=== PATIENT | female | born 1980 | race Caucasian/White ===

== ENCOUNTER 2017-12-12 14:56 | Observation (INO) ==
--- NOTE | 2017-12-12 16:34 | General Surg History&Physical ---
<Maritza Pereira - Last Filed: 12/12/17 18:16> Date of Encounter: 12/12/17 Time of Encounter: 16:32 Assessment and Plan (1) Acute appendicitis Current Visit: No Status: Resolved 37 y F with Hx of GERD presenting with RLQ abdominal pain likely 2/2 to acute appendicitis, with CT imaging appendicitis with appendicolith, presenting with Right lower quadrant tenderness , Nausea, leukocytosis Plan for appendectomy tomorrow Clear Liquid diet until midnight. NPO Diet Type and Screen IV fluids IV Abx CBC, BMP in AM Qualifiers: Acute appendicitis type: with localized peritonitis Qualified Code(s): K35.3 - Acute appendicitis with localized peritonitis (2) Fibromyalgia Current Visit: Yes Status: Acute Resume PO meds with diet. (3) DVT prophylaxis Current Visit: Yes Status: Acute SCDs History of Present Illness Chief complaint: Abdominal Pain HPI: Ms. Vidal is a 37 year old female with a past medical history of fibromyalgia, GERD, migraine presenting to ED for worsening abdominal pain RLQ pain x 4 days. Pain was and sharp and aggravated on sitting or walking.Abdominal Pain did not migrate. Associated symptoms: Nausea. Denies: Vomiting. Anorexia. Diarrhea. No relieving factors. 12/12 CT Imaging in ED impression including: dilated appendix measuring 1.0 cm with moderate periappendiceal inflammation consistent with acute uncomplicated appendicitis. A 7 mm hyperattenuating lesion within the lumen of the mid appendix likely represents an appendicolith. Medications: Sevella 50 mg PO BID -Fibromylagia Black Cohosh 540 mg QD - Hot flashes Allergies: Pt denies any known allergies to medications. Social: No alcohol. Non-smoker Surgical History: Hysterectomy. Denies any complication with past surgery. Past Med Surg Social Fam HX - Past Medical History Medical history: fibromyalgia, GERD, migraine Psychiatric history: no psych history - Social History Smoking Status: Former smoker Smokeless Tobacco Status: No Alcohol use: none Drug use: none Medications and Allergies Milnacipran HCl [Savella] 50 mg PO BID 08/05/16 [History] 3 Allergy/AdvReac Type Severity Reaction Status Date / Time No Known Allergies Allergy Verified 11/22/15 21:41 Review of Systems All systems PM: As documented above in the HPI. General Surgery Exam - General physical appearance no distress - Respiratory normal expansion, normal respiratory effort, clear to auscultation - Cardiovascular Cardiovascular exam: Present: RRR, no murmurs/rubs/gallops - Abdomen Abdomen general surgery: Present: bowel sounds present, soft, tender (RLQ pain on passive R hip extension ) Abdominal Tenderness: Present: RLQ - Psychiatric Psychiatric general surgery: Present: appropriate, oriented to person, oriented to place, oriented to time, speech is normal Results - Labs Refer to Labs of 12/12 13:32 - Imaging CT scan - abdomen: report reviewed CT scan - pelvis: image reviewed (CT OF THE ABDOMEN AND PELVIS WITHOUT CONTRAST 12/12/2017 2:05 pm TECHNIQUE: CT of the abdomen and pelvis was performed without the administration of intravenous contrast. Multiplanar reformatted images are provided for review. Dose modulation, iterative reconstruction, and/ or weight based adjustment of the mA/kV was utilized to reduce the radiation dose to as low as reasonably achievable. COMPARISON: 02/03/2017 HISTORY: ORDERING SYSTEM PROVIDED HISTORY: abd pain left flank pain FINDINGS: Lower Chest: There is bibasilar atelectasis. Organs: The unenhanced liver, spleen, pancreas, adrenal glands and kidneys are unremarkable. GI/Bowel: There is no bowel obstruction. However, the appendix is dilated measuring 1.0 cm with moderate periappendiceal inflammation consistent with acute uncomplicated appendicitis. A 7 mm hyperattenuating lesion within the lumen of the mid appendix likely represents an appendicolith. Pelvis: The unenhanced pelvic viscera are within normal limits. Peritoneum/Retroperitoneum: There is no evidence of adenopathy. A trace amount of pelvic ascites is noted. Bones/Soft Tissues: Degenerative changes involve the thoracolumbar spine. 0093 CT/CT abd pelvis wo no iv no oral IMPRESSION: 1. Acute appendicitis. 2. Trace amount of pelvic ascites. D/ / Pascual Olivo MD / Pascual Olivo MD Interpreting Provider: Pascual Olivo MD ) <Kathie Medina - Last Filed: 12/12/17 19:41> Date of Encounter: 12/12/17 Assessment and Plan (1) Leukocytosis Current Visit: Yes Status: Acute The assessment and plan as outlined above was discussed with the patient and/or family members who expressed understanding and agreement. All questions were answered. continue zosyn, trend wbc Qualifiers: Leukocytosis type: unspecified Qualified Code(s): D72.829 - Elevated white blood cell count, unspecified (2) Acute appendicitis Current Visit: No Status: Acute The assessment and plan as outlined above was discussed with the patient and/or family members who expressed understanding and agreement. All questions were answered. discussed labs, ct results and physical exam with patient, will plan laparoscopic appendectomy, possible open risks and benefits discussed and patient wishes to proceed. will proceed in next 12 to 24 hrs npo midnight ivf hydration prn pain control scheduled ofirmev gi/dvt prophylaxis Qualifiers: Acute appendicitis type: with localized peritonitis Qualified Code(s): K35.3 - Acute appendicitis with localized peritonitis History of Present Illness HPI: Ms. Vidal is a 37 year old female who started having RLQ pain intermittently on Friday evening (3 days ago). Over the next few days the pain became more persistent and severe. She has had nausea without emesis. She has no diarrhea but has had softer stools. She denies fevers, chills or night sweats. No dysuria. Past Med Surg Social Fam HX - Past Medical History Source: patient - Past Surgical History Surgical History: NINFA/BSO (history uterine ablation) - Family History Mother Living Status: Still Living Hx Family Cardiac Disorders: No Hx Family Respiratory Disorders: No Hx Family Cancer: No Hx Family GI Disorders: No Hx Family Genitourinary Disorders: No Hx Family Endocrine Disorder: No Hx Family Musculoskeletal Disorders: No Hx Family Neuromuscular Disorders: No Hx Family Neurologic Disorders: No Hx Family HEENT Disorders: No Hx Family Autoimmune Disorders: No Hx Family Reproductive Disorders: No Hx Family Psychosocial Disorders: No Hx Family Medical Disorders: No Father Living Status: Still Living Hx Family Cardiac Disorders: Yes (quadruple bypass) Hx Family GI Disorders: Yes (Cirrohsis) Hx Family Endocrine Disorder: Yes (Diabetic) Review of Systems All systems PM: reviewed and no additional remarkable complaints except as stated All systems PM: A 10-system review of systems was performed and is negative for pertinent findings except as documented above in the HPI. General Surgery Exam Initial Vital Signs Pulse Ox 100 12/12/17 17:54 - General physical appearance well developed, well nourished, no distress - Eyes PERRL, normal ocular movement - ENT normal mucosa, normocephalic - Neck trachea midline - Respiratory normal respiratory effort, clear to auscultation - Cardiovascular Cardiovascular exam: Present: RRR, no murmurs/rubs/gallops - Abdomen Abdomen general surgery: Present: bowel sounds present, soft, tender. Absent: distended, guarding, rebound - Integumentary Integumentary general surgery: Present: warm and dry, no abnormal pigmentation - Neurologic Present: CN 2-12 grossly intact - Musculoskeletal Present: normal gait, normal posture - Psychiatric Psychiatric general surgery: Present: A&Ox3, speech is normal Results - Labs reviewed - drawn at [facility] - Imaging CT scan - abdomen: report reviewed, image reviewed CT scan - pelvis: report reviewed, image reviewed - Attending Attestation I examined this patient and my medical decision-making was reviewed with the Resident Physician. I agree with the documented findings, disposition and treatment plan as described except to the extent set forth below.
[2017-12-12] MEDS ORDERED: Acetaminophen 325 MG TABLET PO PRN (17:04)
[2017-12-12] MEDS ORDERED: Naloxone 0.4 MG/ML INJ IVP PRN (17:06)
[2017-12-12] MEDS: 0.9 % Sodium Chloride 1,000 ML IVC SCH (18:04)
[2017-12-12] MEDS ORDERED: *HR* Promethazine 25 MG/ML VIAL IVP PRN (18:09)
[2017-12-12] MEDS: *HR* Morphine 2 MG/ML SYRINGE IVP PRN ×2 (18:31→20:45)
[2017-12-12] MEDS ORDERED: Acetaminophen IV 1,000 MG/100 ML INFUS..BTL IVPB PRN (21:21)
[2017-12-12] MEDS: Ondansetron 4 MG/2 ML VIAL IVP PRN (22:03)
[2017-12-12] MEDS: Piperacillin/Tazobactam 3.375 GM/200 ML BAG IVPB SCH (22:04)
[2017-12-12] MEDS: Ketorolac 15 MG/ML VIAL IVP SCH (23:39)
[2017-12-13] MEDS ORDERED: Acetaminophen IV 1,000 MG/100 ML INFUS..BTL IVPB SCH
[2017-12-13] MEDS: 0.9 % Sodium Chloride 1,000 ML IVC SCH ×2 (02:20→11:15)
[2017-12-13] MEDS: *HR* Morphine 2 MG/ML SYRINGE IVP PRN ×4 (03:35→22:18)
[2017-12-13] MEDS: Piperacillin/Tazobactam 3.375 GM/200 ML BAG IVPB SCH ×2 (04:57→14:01)
[2017-12-13] MEDS: Ketorolac 15 MG/ML VIAL IVP SCH ×3 (05:00→17:57)
[2017-12-13 07:48] LABS: BUN/Creatinine Ratio 12 (6-26); Blood Urea Nitrogen 9 mg/dL (6-20); Calcium 8.6 mg/dL (8.6-10.3); Carbon Dioxide 29 mEq/L (23-29); Chloride 108 mEq/L (98-107); Glucose 94 mg/dL (70-105); Magnesium 1.9 mg/dL (1.6-2.6); Osmolality,Calculated 286 (280-300); Phosphorous 4.1 mg/dL (2.7-4.5); Potassium 3.8 mEq/L (3.5-5.1); Sodium 139 mEq/L (136-145); eGFR For African Americans > 60 (> 60); eGFR For Non-African Americans > 60 (> 60)
[2017-12-13 07:55] LABS: Basophils % 0.2 %; Eosinophils # 0.2 K/mcL (0.0-0.6); Eosinophils % 1.6 %; Hematocrit 36.1 % (35.3-44.9); Hemoglobin 11.3 g/dL (11.5-15.4); Immature Granulocytes % 0.3 % (0-4); Lymphocytes % 17.4 %; Mean Corpuscular HGB Conc 31.3 g/dL (31.6-35.5); Mean Corpuscular Hemoglobin 28.1 pg (28.0-33.3); Mean Corpuscular Volume 89.8 fL (83.0-100.0); Mean Platelet Volume 10.5 fL (9.4-12.4); Monocytes # 0.7 K/mcL (0.0-1.3); Monocytes % 5.8 %; Neutrophils # 8.7 K/mcL (1.6-8.9); Platelet Count 221 K/mcL (140-400); Red Blood Count 4.02 M/mcL (3.82-4.97); Red Cell Distribution Width 13.2 % (11.5-14.5); Segmented Neutrophils % 74.7 %
[2017-12-13] MEDS: Ondansetron 4 MG/2 ML VIAL IVP PRN (08:40)
[2017-12-13] MEDS ORDERED: Pantoprazole 40 MG VIAL IVP SCH (09:00)
[2017-12-13] MEDS ORDERED: Ketorolac 30 MG/ML VIAL IVP ONE (19:09)
[2017-12-13] MEDS ORDERED: *HR* Labetalol 20 MG/4 ML SYRINGE IVP PRN (19:09)
[2017-12-13] MEDS ORDERED: *HR* Promethazine 25 MG/ML VIAL IVP PRN ×2 (19:09→22:00)
[2017-12-13] MEDS ORDERED: Ondansetron 4 MG/2 ML VIAL IVP ONE (19:09)
--- NOTE | 2017-12-13 19:13 | Anesthesia Evaluation PreOp ---
Date of Encounter: 12/13/17 Time of Encounter: 19:11 - Past History Planned Operation: Lap. Appy Cardiac History: Denies any Significant Hx Pulmonary History: Denies Any Significant HX [employer] History: Other (Migraines) Other Medical History: GERD, Other (Fibromyalgia) Anesthesia History: No Prior Anesthetic Complications, Past Anesthesia (NINFA-BSO , Axillary Node, Tubal) : No (NINFA) Alcohol Use: none Drug use: none Medications and Allergies Milnacipran HCl [Savella] 50 mg PO BID 08/05/16 [History] Black Cohosh 540 mg PO DAILY 12/13/17 [History] 3 Allergy/AdvReac Type Severity Reaction Status Date / Time No Known Allergies Allergy Verified 12/13/17 17:17 - Meds/Allergy Pre-op Review Medications Reviewed: Yes Allergies Reviewed: Yes Beta Blockers on Current Med List: No Anesthesia Results - Labs 12/13/17 06:51 12/13/17 06:51 - Imaging EKG: report reviewed (SR) Anesthesia Exam Vital Signs/O2 Sat, Most Current Temp Pulse Resp BP Pulse Ox 99.7 F H 88 14 103/68 95 12/13/17 15:34 12/13/17 15:34 12/13/17 15:34 12/13/17 15:34 12/13/17 15:34 NPO (# of Hours): > 8 hrs Pain Scale: 0 Pain Scale Used: Numeric (1 - 10) - HEENT Pupil (Motor): Pupils equal, EOMI Mallampati: III Teeth: Normal Oral Opening: Greater than 3 - [employer] LOC: Oriented [employer] Motor: Normal RUE, Normal LUE, Normal RLE, Normal LLE, Normal Face [employer] Sensory: Normal: RUE, LUE, RLE, LLE, Face - Cardiac Rhythm: Regular Murmur: None JVD: No Carotid Bruit: No - Pulmonary Breath Sounds: bilateral Clear Respiratory Effort: Symmetrical Anesthesia Assess/Plan ASA Score: 2 Modified Robbin Scale for Level of Consciousness: Cooperative, oriented, and tranquil Anesthetic Plan: General Autologous Blood: Yes Monitoring Plan: Standard Monitors Recovery Plan: PACU
[2017-12-13] MEDS ORDERED: *HR* Midazolam HCl 2 MG/2 ML VIAL ONE (19:44)
[2017-12-13] MEDS ORDERED: *HR* FentaNYL (PF) 100 MCG/2 ML VIAL ONE (19:44)
[2017-12-13] MEDS ORDERED: *HR* Propofol 200 MG/20 ML VIAL IVP ONE (19:44)
[2017-12-13] MEDS ORDERED: Ondansetron 4 MG/2 ML VIAL ONE (19:47)
[2017-12-13] MEDS ORDERED: Lidocaine -MPF 2% 2 ML VIAL ONE (19:47)
[2017-12-13] MEDS ORDERED: Dexamethasone 4 MG/ML VIAL ONE (19:47)
[2017-12-13] MEDS ORDERED: *HR* Rocuronium Bromide 50 MG/5 ML VIAL ONE (19:47)
[2017-12-13] MEDS ORDERED: *HR* Succinylcholine 200 MG/10 ML VIAL IVP ONE (19:47)
[2017-12-13] MEDS ORDERED: CefOXitin 1,000 MG VIAL ONE (20:30)
[2017-12-13] MEDS ORDERED: Ketorolac 30 MG/ML VIAL ONE (20:47)
[2017-12-13] MEDS ORDERED: Neostigmine Methylsulfate 3 MG/3 ML SYRINGE ONE (21:02)
--- NOTE | 2017-12-13 21:10 | Operative Note ---
Date of procedure: 12/13/17 Pre-op diagnosis: acute appendicitis Post-op diagnosis: same Procedure: Laparoscopic appendectomy Complications: none immediate Surgeon: Kathie Medina Was there an economist research assistant present: No Manager Information Other: Michelle Hickey Estimated blood loss (cc): 5 Specimen: appendix Condition: stable Disposition: PACU Procedure in Detail: The patient was brought into the operating suite and placed supine on the operating table. Sign-in was performed and everyone was in agreement. Anesthesia was induced and patient was endotracheally intubated by anesthesia without incident. An OG tube was placed by anesthesia. The abdomen was prepped and draped in the usual sterile fashion. A timeout was performed and again everyone was in agreement. A supraumbilical incision was made through the skin and the subcutaneous tissue with an 11 blade. Towel clamps were placed on either side of the umbilicus for retraction. S-retractors were used to dissect down to the anterior abdominal wall linea alba fascia. A Veress needle was placed into this incision and a water drop test confirmed placement and the abdomen was insufflated. We then entered the abdomen with the 5 mm 0 degree laparoscope on a 5 mm X-catalina trocar. The area under entry was visualized and there was no bleeding and no apparent bowel injury. We placed a suprapubic 5 mm port under direct visualization after first incising the skin with an 11 blade. The laparoscope was placed through this and we exchanged the supraumbilical port for a 12 mm port under direct visualization. We then placed another 5 mm port in the left lower quadrant position under direct visualization after first incising the skin with an 11 blade. The patient was placed in slight Trendelenburg left side down position. The patient did have a right lower quadrant small hernia with omentum incarcerated in the hernia which was reduced with a laparoscopic Margie. The cecum was located as was the appendix which was adhesed to the right lower quadrant pelvic sidewall. The appendix was grasped and retracted anteriorly and caudally with a laparoscopic Boaz. A [place] was used to dissect between the mesoappendix and the appendix at the base of the cecum. The mesoappendix was transected with a laparoscopic flex-ex ETS stapler using a white load. The appendix was transected at the base of the cecum with the same stapler utilizing a white load. The appendix was placed in a laparoscopic Endo Catch bag and removed via the supraumbilical incision site. Both staple lines were evaluated and there was no bleeding and both staple lines were intact. The area was copiously irrigated with sterile saline which was then suctioned free from the abdomen. The insufflation was suctioned free from the abdomen and all trochars removed. We closed the abdominal wall at the supraumbilical incision site with an 0 Vicryl [id number] stitch. A 30 cc of 0.5% Marcaine was injected subcutaneously at the 3 port sites. The skin at the two 5 mm port sites was closed with 4-0 Monocryl interrupted subcuticular stitches. The skin at the supraumbilical incision site was closed with a 4-0 Monocryl running subcuticular stitch. Steri-Strips were applied to the wounds. The patient was extubated in the OR and tolerated the procedure well and was taken to PACU after all lap and instrument counts were correct at the end of the case.
--- NOTE | 2017-12-13 21:17 | Discharge Summary ---
Date of Encounter: 12/14/17 Time of Encounter: 10:00 - Discharge Diagnosis (1) Leukocytosis Priority: Secondary Status: Acute Qualifiers: Leukocytosis type: unspecified Qualified Code(s): D72.829 - Elevated white blood cell count, unspecified (2) Acute appendicitis Priority: Primary Status: Inactive Qualifiers: Acute appendicitis type: with localized peritonitis Qualified Code(s): K35.3 - Acute appendicitis with localized peritonitis - Discharge Medications Prescriptions: OxyCODONE/APAP 5/325 [Percocet 5/325 MG] 1 each PO Q4HR PRN #25 tablet PRN Reason: Pain Amoxicillin/Clavulanate [Augmentin] 875 mg PO BIDWM 5 Days #10 tablet Docusate [Colace] 100 mg PO BID #30 capsule Home Medications: Milnacipran HCl [Savella] 50 mg PO BID 08/05/16 [History] Amoxicillin/Clavulanate [Augmentin] 875 mg PO BIDWM 5 Days #10 tablet 12/13/17 [ Rx] Black Cohosh 540 mg PO DAILY 12/13/17 [History] Docusate [Colace] 100 mg PO BID #30 capsule 12/13/17 [Rx] OxyCODONE/APAP 5/325 [Percocet 5/325 MG] 1 each PO Q4HR PRN #25 tablet 12/13/17 [Rx] Allergies/Adverse Reactions: 3 Allergy/AdvReac Type Severity Reaction Status Date / Time No Known Allergies Allergy Verified 12/13/17 17:17 General Surgery Exam Initial Vital Signs Pulse Ox 100 12/12/17 17:54 - General physical appearance well nourished, no distress, moderate pain - Eyes PERRL, normal ocular movement - ENT normal mucosa, normocephalic - Neck trachea midline - Respiratory normal expansion, normal respiratory effort, clear to auscultation - Cardiovascular Cardiovascular exam: Present: RRR - Abdomen Abdomen general surgery: Present: bowel sounds present, soft, tender ( appropriate post op tenderness). Absent: guarding, rebound - Incision Incision: Present: clean and dry, intact - Integumentary Integumentary general surgery: Present: warm and dry, no abnormal pigmentation - Neurologic Present: CN 2-12 grossly intact - Musculoskeletal Present: normal gait, normal posture - Psychiatric Psychiatric general surgery: Present: A&Ox3, speech is normal Date of admission: 12/12/17 16:26 Primary care physician: Nigel Deluna MD Discharging clinician: Kathie Medina Anticipated date of discharge: 12/14/17 - Patient Status Disposition: Home, Self-Care Condition: Good Overall status at discharge: patient is progressing back to baseline - Discharge Instructions Instructions: Laparoscopic Appendectomy (DC) Follow Up With: Nigel Deluna MD [Primary Care Provider] - Yissel Maradiaga CNP [Advanced Practice Nurse] - (call for post operative appt in 2 weeks) Additional Instructions: No lifting more than 20 pounds for 2 weeks. Okay to take a shower in 24 hours. No tub baths or pools for 1 week. Okay to ride in the car wearing a seatbelt and climb steps. No driving until off narcotics for 24 hours and able to react safely Remove Steri-Strips in 1 week Do not take pain medicine/narcotics on an empty stomach it will likely cause nausea and possibly vomiting. If pain medication is too strong okay to break in half - Diet and Activity Activity: increase activity as tolerated Diet: advance to your usual diet - Hospital Course Hospital course: Ms. Vidal is a 37 year old female - Time Spent with Patient Total time spent providing and/or coordinating discharge services: Less than 30 minutes Labs on day of discharge: Labs from last 24 hours 12/13/17 12/13/17 12/13/17 06:51 06:51 05:18 WBC 11.6 H RBC 4.02 Hgb 11.3 L D Hct 36.1 MCV 89.8 MCH 28.1 MCHC 31.3 L RDW 13.2 Plt Count 221 MPV 10.5 Immature Gran % 0.3 Seg Neutrophils % 74.7 Lymphocytes % 17.4 Monocytes % 5.8 Eosinophils % 1.6 Basophils % 0.2 Neutrophils # 8.7 Lymphocytes # 2.0 Monocytes # 0.7 Eosinophils # 0.2 Basophils # 0.0 Sodium 139 Potassium 3.8 Chloride 108 H Carbon Dioxide 29 BUN 9 Creatinine 0.73 Est GFR ( Amer) > 60 Est GFR (Non-Af Amer) > 60 BUN/Creatinine Ratio 12 Glucose 94 POC Glucose 105 H Calculated Osmolality 286 Calcium 8.6 Phosphorus 4.1 Magnesium 1.9
[2017-12-13] MEDS ORDERED: Ringers Solution, Lactated 1,000 ML ONE (21:45)
[2017-12-13] MEDS ORDERED: Ondansetron 4 MG/2 ML VIAL IVP PRN (22:00)
[2017-12-13] MEDS ORDERED: 0.9 % Sodium Chloride 1,000 ML IVC SCH (22:00)
[2017-12-13] MEDS ORDERED: Naloxone 0.4 MG/ML INJ IVP PRN (22:00)
[2017-12-13] MEDS ORDERED: *HR* OxyCODONE/APAP 5/325 TABLET PO PRN (22:00)
--- NOTE | 2017-12-14 01:22 | Anesthesia Evaluation Post Op ---
Date of Encounter: 12/14/17 Time of Encounter: 21:50 - Vital Signs Vital Signs: Vital Signs/O2 Sat, Most Current Temp Pulse Resp BP Pulse Ox 97.9 F 70 15 101/59 94 12/13/17 23:21 12/13/17 23:21 12/13/17 23:21 12/13/17 23:21 12/13/17 23:21 - Lungs Lungs: Clear Ascult./Percussion - Airway Airway: Non-obstructed - Cardiovascular Regular Rate - Mental Status Mental Status: Alert & Oriented, Answers Appropriately - Pain Pain Scale: 0 Pain Scale used: Numeric (1 - 10) - Nausea Vomiting Nausea Vomiting: Not Present - Hydration Hydration: NPO, Has not voided - Discharge PostOp Status: Transfer Patient to floor
[2017-12-14] MEDS: Ketorolac 15 MG/ML VIAL IVP SCH ×2 (02:35→04:36)
[2017-12-14] MEDS: *HR* Morphine 2 MG/ML SYRINGE IVP PRN ×2 (02:36→05:38)
[2017-12-14] MEDS ORDERED: Piperacillin/Tazobactam 3.375 GM/200 ML BAG IVPB SCH (05:00)
[2017-12-14] MEDS ORDERED: Pantoprazole 40 MG VIAL IVP SCH (06:30)
[2017-12-14 06:46] LABS: Basophils % 0.2 %; Eosinophils % 0.1 %; Hemoglobin 10.8 g/dL (11.5-15.4); Immature Granulocytes % 0.6 % (0-4); Lymphocytes # 0.9 K/mcL (0.6-4.6); Lymphocytes % 7.5 %; Mean Corpuscular HGB Conc 31.8 g/dL (31.6-35.5); Mean Corpuscular Hemoglobin 28.1 pg (28.0-33.3); Mean Corpuscular Volume 88.5 fL (83.0-100.0); Mean Platelet Volume 10.2 fL (9.4-12.4); Monocytes # 0.5 K/mcL (0.0-1.3); Monocytes % 4.3 %; Neutrophils # 10.5 K/mcL (1.6-8.9); Platelet Count 200 K/mcL (140-400); Red Blood Count 3.84 M/mcL (3.82-4.97); Red Cell Distribution Width 12.7 % (11.5-14.5); Segmented Neutrophils % 87.3 %
[2017-12-14 07:02] LABS: BUN/Creatinine Ratio 14 (6-26); Blood Urea Nitrogen 9 mg/dL (6-20); Calcium 8.6 mg/dL (8.6-10.3); Carbon Dioxide 24 mEq/L (23-29); Chloride 110 mEq/L (98-107); Glucose 147 mg/dL (70-105); Osmolality,Calculated 289 (280-300); Potassium 3.9 mEq/L (3.5-5.1); Sodium 139 mEq/L (136-145); eGFR For African Americans > 60 (> 60); eGFR For Non-African Americans > 60 (> 60)
[2017-12-14 10:42] VITALS: BP 98/64
== END 2017-12-14 12:48 | disposition home or self-care (01) ==
LOC: 3ANU
PROVIDERS: ADMIT Surgery; ATTEND Surgery